=== PATIENT | female | born 1980 | race Caucasian/White ===

== ENCOUNTER 2017-01-16 00:41 | Emergency (ER) | payer OTHER ==
[~2017-01-16 00:41] MED LIST: SULF1TAB7 PO
[2017-01-16 00:49] VITALS: BP 112/63; PULSE 98; RESP 16; O2SAT 100
--- NOTE | 2017-01-16 01:22 | ED.REPORT ---
HPI-General Illness Date of Service Jan 16, 2017 ED Provider: Markell Figueroa MD Pt is a 36 y.o. female with a hx of polysubstance abuse who presents to the ED c /o vaginal bleeding onset today. Pt states that she discovered she was 3 days ago via an at home test and noticed today that she had vaginal spotting with bright red blood. She does not know how far along she is. Pt endorses to heroin use 12 hours ago and denies meth use since she discovered she was . She states that she has used Suboxone in the past.She denies any abscesses currently. She also denies current withdrawal sx. Nursing Notes Stated Complaint: /BLEEDING Chief Complaint: General Complaint Nursing Notes Reviewed: Yes Allergies: Coded Allergies: Penicillins (Verified Allergy, Severe, 01/16/17) aspirin (Verified Allergy, Severe, 01/16/17) ibuprofen (Verified Allergy, Severe, 01/16/17) IBUPROFEN AND NAPROSYN prochlorperazine (Verified Allergy, Severe, 01/16/17) naproxen (Verified Allergy, Intermediate, Shortness of Breath, 07/14/16) NSAIDS (Non-Steroidal Anti-Inflamma (Verified Allergy, Unknown, 07/14/16) Scheduled Buprenorphine SL (Buprenorphine SL) 8 Mg Tab.subl 8 MG SL DAILY General Time Seen by MD: 01:19 Chief Complaint Other (Vaginal bleeding) Hx Obtained From: Patient Arrived By: Walk-in Onset Occurred: 9 - 12 hours ago Severity: Current: No pain currently Severity: Maximum: No pain Past Medical History Past Medical History Methamphetamine and heroin dependence Past Surgical History Eye surgery Smoking History Current Every Day Smoker Social History Drug Use: IV drugs, Meth Other Social History: Good social support, Local resident Ambulatory Status Independent Review of Systems Full Review of Systems Female: Reports: , Vaginal bleeding - abnl Skin: Denies Rash (abscess) Complete sys rev & neg: except as marked. Physical Exam Vital Signs Vital Signs Date Time Temp Pulse Resp B/P Pulse Ox O2 Delivery O2 Flow Rate FiO2 01/16/17 00:49 36.6 98 16 112/63 100 Initial VS: Reviewed, Vital signs normal Extremities: Vascular intact, Neuro intact Neurologic: Alert, Oriented, Nonfocal Psychiatric: Mood/affect normal, Behavior normal, Normal thought content General/Constitutional: Awake, Alert, No acute distress, Not toxic appearing Head / Eyes: Atraumatic, Normocephalic Respiratory / Chest: Atraumatic, Breath sounds NL, Breath sounds = bilat, No respiratory distress Cardiovascular: Heart rate NL, Regular rhythm, Heart sounds NL, No murmurs, Peripheral circulation NL Abdomen: Atraumatic, Soft, Non-tender, No distention Skin: Warm, Dry Rash / Lesion Notes: Multiple small indurated areas where she has injected, no evidence of abscess. Rash / Lesion Pattern: Positive: Track berg (bilateral forearms) Interpretation & Diagnostics Lab Results Interpretation Test 01/16/17 01:47 01/16/17 02:09 Hold Urine Received (Received) HCG Beta Subunit [id number]/mL Hold Menjivar Top Tube Received (Received) Lab Results Interpretation: Dip urine test was negative as was the repeat. However the serum beta hCG was positive. Re-Eval/Medical Decision Med Decision/Clinical Course 36-year-old heroin addict presents with concern for and desiring detox. She was confirmed as . She has had some spotting but no cramping at this point. Her last heroin use was 12 hours ago. She will attempt to maintain hydration and use ondansetron for nausea and vomiting. She was given buprenorphine to take first dose in additional 12 hours. She will follow up with me at [facility] today or tomorrow in the first available appointment. Source of Hx: Old records Time of Eval: 01:36 Re-Evaluation/Progress Note: Physical exam performed. Discussed plan for discharge, pt understands and agrees with plan. Counseled Regarding: Diagnosis, Lab results, Need for follow-up, When/why to return to ED Discharge & Departure Primary Impression: Weeks of gestation: less than 8 weeks Qualified Code: Z3A.01 - Less than 8 weeks gestation of Additional Impressions: Opioid dependence Substance use status: uncomplicated Qualified Code: F11.20 - Opioid dependence, uncomplicated IVDU (intravenous drug user) Disposition: Home Discharge Condition All VS Reviewed: Yes Condition: No Change Patient Instructions: Buprenorphine (By mouth) Additional Instructions: A small amount of bleeding during is common. If you have heavy bleeding needed to follow-up with Dr. Fowler or here in the emergency room. Wait a full 24 hours after your last heroin use to start buprenorphine 8 mg tablets, one dissolved orally twice daily, #2 prescribed. Ondansetron 4 mg ODT if you have nausea and vomiting associated with withdrawal. Also take this medicine prior to your first dose of buprenorphine. Call the [facility] Priority Access Line at [phone] to schedule an appointment to see me on Saturday or . Call me at [phone] between the hours of 9 PM and 6 AM for the next couple nights if you have any questions or concerns. Referrals: Franck Fowler MD (PCP) [facility] Scribe Attestation Portions of this note were transcribed by Danielle Chawla. I, Dr. Figueroa personally performed the history, physical exam and medical decision-making; I reviewed and confirmed the accuracy of the information in the transcribed note. Signed by: James Chacon, 01/16/17 and 0151. copies to: Franck Fowler MD, Howard L MD Jan 16, 2017 01:22 DANIELLE CHAWLA Jan 16, 2017 01:30
[2017-01-16] MEDS ORDERED: BUPR8TAB2 SL (01:41)
[2017-01-16] MEDS ORDERED: _Ondansetron ODT 4 mg Tablet PO PRN (01:45)
== END 2017-01-16 02:25 | disposition home or self-care (01) ==
LOC: SED 00:41
DX: O99.321 Drug use complicating pregnancy, first trimester (principal); Z3A.01 Less than 8 weeks gestation of pregnancy; O99.331 Smoking (tobacco) complicating pregnancy, first trimester; Z88.0 Allergy status to penicillin; Z88.6 Allergy status to analgesic agent

== ENCOUNTER 2017-01-26 22:20 | Emergency (ER) | payer OTHER ==
[~2017-01-26] VITALS: Ht 170.2 cm; Wt 63.6 kg
[~2017-01-26 22:20] MED LIST changes: +BUPR8TAB2 SL; -SULF1TAB7 PO
[2017-01-26 22:27] VITALS: BP 112/63; PULSE 80; RESP 16; O2SAT 98
[2017-01-26] MEDS ORDERED: 0.9% Sodium Chloride 1,000 ML IV ONE (22:43)
--- NOTE | 2017-01-26 22:58 | ED.REPORT ---
HPI- Female Date of Service Jan 26, 2017 ED Provider: Aki Rucker MD Patient is a 36 year old female with confirmed early and a history of IV heroin and methamphetamine abuse who presents to the ED complaining of vaginal bleeding and abdominal cramping onset today. Patient states that she has experienced light bleeding all day and that she was concerned for a possible miscarriage, but also relates that she previously had an ectopic . The patient was seen in the ED on January 16 for this complaint and states that her bleeding resolved after that ED visit. Her was confirmed by quant hCG, with unknown length of . The patient states that she has not had a regular menstrual period since August of last year. She had several negative tests since August, with her first positive home test last month. The patient last had sexual intercourse 8 weeks ago. Patient denies any other complaints. Nursing Notes Stated Complaint: POSSIBLE MISCARRIAGE Chief Complaint: & Delivery Nursing Notes Reviewed: Yes Allergies: Coded Allergies: Penicillins (Verified Allergy, Severe, 01/16/17) aspirin (Verified Allergy, Severe, 01/16/17) ibuprofen (Verified Allergy, Severe, 01/16/17) IBUPROFEN AND NAPROSYN prochlorperazine (Verified Allergy, Severe, 01/16/17) naproxen (Verified Allergy, Intermediate, Shortness of Breath, 07/14/16) NSAIDS (Non-Steroidal Anti-Inflamma (Verified Allergy, Unknown, 07/14/16) Scheduled Buprenorphine SL (Buprenorphine SL) 8 Mg Tab.subl 8 MG SL DAILY General Time Seen by MD: 22:42 Chief Complaint Abdominal pain..., Vaginal bleeding... Hx Obtained From: Patient Arrived By: Walk-in Sudden in Onset?: No Onset Occurred: 9 - 12 hours ago Symptom Duration: Since onset Location: : Abdomen lower Quality: Cramping Severity: Current: Moderate Severity: Maximum: Moderate Status: Positive - ED urine HCG Recent Healthcare: No recent hospitalization, Recent doctor visit Similar Sx Previous: Yes Past Medical History Past Medical History Methamphetamine and heroin dependence Past Surgical History Eye surgery Smoking History Current Every Day Smoker Social History Drug Use: IV drugs, Meth Other Social History: Good social support, Local resident Ambulatory Status Independent Review of Systems GI: Reports: Abdominal pain, Denies: Vomiting Female: Reports: , Vaginal bleeding - abnl Complete sys rev & neg: except as marked. Physical Exam Initial Vital Signs Vital Signs (First) Date Time Temp Pulse Resp B/P Pulse Ox O2 Delivery O2 Flow Rate FiO2 01/26/17 22:27 36.0 80 16 112/63 98 Initial VS: Reviewed Head / Eyes: Atraumatic, Normocephalic, PERRL ENT: Conjunctiva normal, No scleral icterus Neck: Supple, Full range of motion Extremities: Vascular intact, Neuro intact Neurologic: Alert, Oriented, Nonfocal Female Genitourinary: Exam deferred (not indicated) General/Constitutional: Awake, Alert Respiratory / Chest: No respiratory distress, No stridor Cardiovascular: Heart rate NL, Regular rhythm, Heart sounds NL Abdomen: Soft, Non-tender, No guarding, No rebound Skin: Warm, Dry Rash / Lesion Pattern: Positive: Track berg (stigmata of IV drug use) Interpretation & Diagnostics Interpretation & Diagnostics: Urine : Positive Lab Results Interpretation Test 01/26/17 22:43 Urine Color Dark yellow (YELLOW) Urine Appearance Clear (CLEAR,HAZY) Urine pH 6.5 (5.0-8.0) Urine Specific [place] 1.030 (1.003-1.035) Urine Protein Tracemg/dL (NEG,TRACE) Urine Glucose (UA) Negativemg/dL (NEGATIVE) Urine Ketones Negativemg/dL (NEGATIVE) Urine Occult Blood Large (NEGATIVE) Urine Nitrite Negative (NEGATIVE) Urine Bilirubin Negative (NEGATIVE) Urine Urobilinogen 1.0mg/dL (NORMAL) Urine Leukocyte Esterase Negative (NEGATIVE) Urine RBC 11-50/hpf (0-2) Urine WBC 0-5/hpf (0-5) Urine Epithelial Cells Few/hpf (NONE-MOD) Urine Crystals Amorphous urates (NONE Urine Bacteria Few/hpf (NONE-FEW) Urine Hyaline Casts None/lpf (NONE) Urine Granular Casts None seen (NONE SEEN) Urine Waxy Casts None seen (NONE SEEN) Urine Red Blood Cell Casts None seen (NONE SEEN) Urine White Blood Cell Casts None seen (NONE SEEN) Urine Mucus Present (None Seen) Urine Trichomonas None seen (NONE SEEN) Urine Yeast None (NONE SEEN) Urinalysis Comment None Urine Culture Reflexed Not indicated Re-Eval/Medical Decision Med Decision/Clinical Course 36-year-old presents with vaginal cramping and bleeding approximately eight weeks . Ultrasound was ordered to evaluate for ectopic, particularly in view of her prior ectopic. Unfortunately, she was unwilling to remain after an attempt at an IV, and departed before ultrasound could arrive. Source of Hx: Old records Re-Evaluation/Progress : Time of Eval: 23:12 Re-Evaluation/Progress Note: Patient became frustered during IV start and left the department prior to completion of work-up. Discharge & Departure Impression: Primary Impression: Vaginal bleeding in Trimester: first trimester Qualified Code: O46.91 - Antepartum hemorrhage, unspecified, first trimester Additional Impression: IVDU (intravenous drug user) Disposition: AGAINST MEDICAL ADVICE Discharge Condition All VS Reviewed: Yes Condition: Stable Referrals: Franck Fowler MD (PCP) [facility] Attestation Portions of this note were transcribed by Jennifer Alejo. I, Dr. Rucker personally performed the history, physical exam and medical decision-making; I reviewed and confirmed the accuracy of the information in the transcribed note. Signed by: James Baum, 01/26/2017 1856 copies to: Franck Fowler MD, Christopher W MD Jan 26, 2017 22:58 Jennifer Alejo Jan 26, 2017 23:05
[2017-01-26 23:03] LABS: APPEARANCE,URINE CLEAR (CLEAR,HAZY); COLOR,URINE DARK YELLOW (YELLOW); OCCULT BLOOD,URINE LARGE (NEGATIVE); PH,URINE 6.5 (5.0-8.0)
== END 2017-01-26 23:17 | disposition left against medical advice (07) ==
LOC: SED 22:20
DX: O46.91 Antepartum hemorrhage, unspecified, first trimester (principal); O99.331 Smoking (tobacco) complicating pregnancy, first trimester; R10.30 Lower abdominal pain, unspecified; F15.20 Other stimulant dependence, uncomplicated; F11.20 Opioid dependence, uncomplicated; Z3A.08 8 weeks gestation of pregnancy; Z88.0 Allergy status to penicillin; Z88.6 Allergy status to analgesic agent; Z88.8 Allergy status to other drugs, medicaments and biological substances

== ENCOUNTER 2017-04-08 00:52 | Emergency (ER) | payer OTHER ==
[~2017-04-08] VITALS: Ht 170.2 cm; Wt 155.0 kg
[2017-04-08 01:04] VITALS: BP 111/74; PULSE 82; RESP 16; O2SAT 99
--- NOTE | 2017-04-08 02:02 | ED.REPORT ---
HPI-Rash / Abscess Date of Service Apr 08, 2017 ED Provider: Francisco Rogers DO Patient is a 36 year old female with a history of IV drug use who presents to the ED complaining of a small abscess in her left axilla. She reports that she noticed it today but does not want it drained. Patient admits to using heroin earlier today. Nursing Notes Stated Complaint: BLISTER L ARMPIT Chief Complaint: Skin Rash/Abscess Nursing Notes Reviewed: Yes Allergies: Coded Allergies: Penicillins (Verified Allergy, Severe, 01/16/17) aspirin (Verified Allergy, Severe, 01/16/17) ibuprofen (Verified Allergy, Severe, 01/16/17) IBUPROFEN AND NAPROSYN prochlorperazine (Verified Allergy, Severe, 01/16/17) naproxen (Verified Allergy, Intermediate, Shortness of Breath, 07/14/16) NSAIDS (Non-Steroidal Anti-Inflamma (Verified Allergy, Unknown, 07/14/16) Scheduled Buprenorphine SL (Buprenorphine SL) 8 Mg Tab.subl 8 MG SL DAILY General Time Seen by MD: 02:02 Chief Complaint Abscess Hx Obtained From: Patient Arrived By: Walk-in Onset Occurred: Yesterday Symptom Duration: Since onset Location: : Axilla Severity: Current: Mild Recent Healthcare: No recent hospitalization, Recent doctor visit Similar Sx Previous: Yes Past Medical History Past Medical History Methamphetamine and heroin dependence Past Surgical History Eye surgery Smoking History Current Every Day Smoker Social History Drug Use: IV drugs, Meth Other Social History: Local resident Ambulatory Status Independent Review of Systems Constitutional: Denies: Chills, Fever, Malaise Respiratory: Denies: Non-productive cough, Shortness of breath, Wheezing Skin: Reports Rash, Reports Swelling Complete sys rev & neg: except as marked. Hematologic: Denies Bruising, Denies Petechiae Physical Exam Initial Vital Signs Vital Signs (First) Date Time Temp Pulse Resp B/P Pulse Ox O2 Delivery O2 Flow Rate FiO2 04/08/17 01:04 36.9 82 16 111/74 99 Room Air Initial VS: Reviewed General/Constitutional: Awake, Alert, No acute distress Skin: Warm, Dry small pustula left axilla Head / Eyes: Atraumatic, Normocephalic, PERRL, EOMI Respiratory / Chest: Atraumatic, Breath sounds NL, Breath sounds = bilat, No respiratory distress Cardiovascular: Heart rate NL, Regular rhythm, Heart sounds NL Neurologic: Oriented X3, Speech NL, No motor deficits, No sensory deficits Psychiatric: Affect NL, Mood NL Interpretation & Diagnostics Lab Results Interpretation Test 04/08/17 01:20 Hold Urine Received (Received) Re-Eval/Medical Decision Med Decision/Clinical Course 36-year-old injection drug abuse or has not abscess in her left axilla. I think it needs to be drained and I recommended this. She declined. She states when treated with antibiotics and seems to work. Incidentally she was tested for being and came back positive. Clindamycin is class B in . Recommend that as well as topical warm compress and outpatient follow-up regarding the and surgical clinic for the abscess. Re-Evaluation/Progress : Time of Eval: 02:10 Re-Evaluation/Progress Note: Discussed plan for treatment and discharge. The patient understands and agrees to the plan. All questions were addressed. Counseled Regarding: Diagnosis, Need for follow-up, When/why to return to ED Discharge & Departure Impression: Primary Impression: Cellulitis Site of cellulitis: other site Qualified Code: L03.818 - Cellulitis of other sites Additional Impression: Abscess Disposition: Home Discharge Condition All VS Reviewed: Yes Condition: Stable Patient Instructions: Abscess (ED), Cellulitis (ED) Additional Instructions: You have an abscess in your left axilla that I recommend be drained. Since you did not want it drained, you can take Clindamycin 3x a day for 5 days. If you develop diarrhea in the next 4 weeks, stop taking Clindamycin and come back to the emergency department for a stool culture. Apply a warm compress to the area. Have it rechecked in 48 hours. There is also a surgical clinic referral attached if you would prefer to have it drained there. You also had a positive urine test. You should stop using heroin and follow up with [facility] to get started on Suboxone. Follow up with OBGYN this week for further evaluation of your . Return to the emergency department if you develop any new or concerning symptoms. Referrals: Franck Fowler MD (PCP) Norberto Villalpando MD [facility] Scribe Attestation Portions of this note were transcribed by Leticia Saunders. I, Dr. Rogers personally performed the history, physical exam and medical decision-making; I reviewed and confirmed the accuracy of the information in the transcribed note. Signed by: Leticia Ramirez, 04/08/17 and 0230 copies to: Norberto Villalpando MD; Franck Fowler MD; [facility] [place] [facility] Francisco Rogers DO Apr 08, 2017 02:02 Fern Saunders Apr 08, 2017 02:14
[2017-04-08 03:05] VITALS: BP 103/68; PULSE 85; RESP 18; O2SAT 98
== END 2017-04-08 03:06 | disposition home or self-care (01) ==
LOC: SED 00:52
DX: L03.112 Cellulitis of left axilla (principal); L02.412 Cutaneous abscess of left axilla; F17.200 Nicotine dependence, unspecified, uncomplicated; Z33.1 Pregnant state, incidental; Z88.0 Allergy status to penicillin; Z88.8 Allergy status to other drugs, medicaments and biological substances